=== PATIENT | female | born 1985 | race African-American/Black ===

== ENCOUNTER 2018-02-04 23:52 | Emergency (ER) | payer SELFPAY ==
--- NOTE | 2018-02-05 01:01 | ER Document Report ---
ED Psych Disorder / Suicide - General Chief Complaint: Psych Problem Stated Complaint: PSYCH Time Seen by Provider: 02/05/18 00:45 Mode of Arrival: Ambulatory Information source: Patient TRAVEL OUTSIDE OF THE [place] IN LAST 30 DAYS: No - HPI Onset was: Gradual Quality of pain: No pain Suicide Risk Factors: Depressed Normal mood: Yes Associated symptoms: Depressed Similar symptoms previously: Yes Recently seen / treated by doctor: No Notes: Patient is a 32-year-old female presenting to the emergency room complaining of depression with anxiety and mood swings that have been going on for the past few months, she had an argument with her significant other earlier today prompting her to feel increasingly depressed, she denies any suicidal ideation or homicidal ideation, she was hospitalized at [facility] approximately 1 year ago when she was having suicidal thoughts, is currently taking Lexapro which she feels is not working for her, secondary to financial and insurance issues patient does not currently participate in a mental health program - Related Data Allergies/Adverse Reactions: No Known Allergies Allergy (Unverified 02/04/18 23:58) Past Medical History - General Information source: Patient - Social History Smoking Status: Unknown if Ever Smoked Family History: Reviewed & Not Pertinent Review of Systems - Review of Systems Constitutional: No symptoms reported EENT: No symptoms reported Cardiovascular: No symptoms reported Respiratory: No symptoms reported Gastrointestinal: No symptoms reported Genitourinary: No symptoms reported Female Genitourinary: No symptoms reported Musculoskeletal: No symptoms reported Skin: No symptoms reported Hematologic/Lymphatic: No symptoms reported Neurological/Psychological: See HPI -: Yes All other systems reviewed and negative Physical Exam - Vital signs Interpretation: Normal - General General appearance: Appears well, Alert - HEENT Head: Normocephalic, Atraumatic Eyes: Normal Pupils: PERRL - Respiratory Respiratory status: No respiratory distress Chest status: Nontender Breath sounds: Normal Chest palpation: Normal - Cardiovascular Rhythm: Regular Heart sounds: Normal auscultation Murmur: No - Abdominal Inspection: Normal Distension: No distension Bowel sounds: Normal Tenderness: Nontender Organomegaly: No organomegaly - Back Back: Normal, Nontender - Extremities General upper extremity: Normal inspection, Nontender, Normal color, Normal ROM , Normal temperature General lower extremity: Normal inspection, Nontender, Normal color, Normal ROM , Normal temperature, Normal weight bearing. No: Miroslava's sign - Neurological Neuro grossly intact: Yes Cognition: Normal Orientation: AAOx4 [place] Coma Scale Eye Opening: Spontaneous [place] Coma Scale Verbal: Oriented [place] Coma Scale Motor: Obeys Commands [place] Coma Scale Total: 15 Speech: Normal Motor strength normal: LUE, RUE, LLE, RLE Sensory: Normal - Psychological Associated symptoms: Normal affect, Normal mood - Skin Skin Temperature: Warm Skin Moisture: Dry Skin Color: Normal Course - Re-evaluation Re-evalutation: 02/05/18 01:08 Patient reports feeling better at time of my initial evaluation, states she really just needed someone to talk to and acknowledge that she has been having mood swings depression, she denies any suicidal thoughts or homicidal thoughts, and reports that she feels safe to go home just requests assistance with obtaining services for further evaluation and treatment, patient was provided with a list of mental health resources in the area, a social work consult was placed as well with the hopes that clinical social worker can contact patient and assist in providing her with information to obtain insurance and resources for mental health treatment, patient was also advised that she could return to the emergency room at any time should she require more emergent evaluation and treatment, patient acknowledges understanding and agreement with this plan Discharge - Discharge Clinical Impression: Depression Qualifiers: Depression Type: unspecified Qualified Code(s): F32.9 - Major depressive disorder, single episode, unspecified Condition: Stable Disposition: HOME, SELF-CARE Instructions: Depression ([facility]) Additional Instructions: Follow up with your primary care provider in one to 2 days. Return to the emergency room immediately if symptoms worsen or any additional concerns.
[2018-02-05 01:17] VITALS: BP 149/99
== END 2018-02-05 01:17 | disposition home or self-care (01) ==
LOC: ER 23:52
DX: F32.9 Major depressive disorder, single episode, unspecified (principal); F41.9 Anxiety disorder, unspecified; Z79.899 Other long term (current) drug therapy
CPT/HCPCS: 99283